=== PATIENT | female | born 1955 | race Two or more races ===

== ENCOUNTER 2021-07-05 21:54 | Emergency (ER) | payer OTHER ==
[~2021-07-05] VITALS: Ht 160 cm; Wt 68.5 kg
[2021-07-05] MEDS ORDERED: SYNTHROID50 MCG PO (22:18)
[2021-07-05] MEDS ORDERED: SIMVASTATIN5 MG PO (22:19)
[2021-07-06] MEDS ORDERED: NORFLEX100MG PO (00:31)
[2021-07-06] MEDS ORDERED: KETO10TA2 PO (00:31)
== END 2021-07-06 00:37 | disposition home or self-care (01) ==
LOC: ER 21:54
DX: M54.2 Cervicalgia (principal); G44.89 Other headache syndrome; M25.512 Pain in left shoulder

== ENCOUNTER 2021-08-12 09:28 | Outpatient (CLI) | payer OTHER ==
[~2021-08-12 09:28] MED LIST: KETO10TA2 PO; NORFLEX100MG PO; SIMVASTATIN5 MG PO; SYNTHROID50 MCG PO
== END 2021-08-12 09:33 | disposition home or self-care (01) ==
LOC: SONOGRAMA 09:28
PROVIDERS: ATTEND Pathology Anatomic Pathology & Clinical Pathology
DX: E04.2 Nontoxic multinodular goiter (principal)

== ENCOUNTER 2022-10-20 16:00 | Emergency (ER) | payer OTHER ==
[~2022-10-20] VITALS: Ht 160 cm; Wt 54.0 kg
[2022-10-20] MEDS ORDERED: ACID REDUCER20 M1 (16:48)
== END 2022-10-20 20:05 | disposition home or self-care (01) ==
LOC: ER 16:00
DX: K21.9 Gastro-esophageal reflux disease without esophagitis (principal)